=== PATIENT | female | born 1965 ===

== ENCOUNTER 2021-05-18 14:32 | Emergency (ER) | payer MEDICAID ==
[2021-05-18] MEDS ORDERED: Bacitracin Oint 1 GM U/D Packet TOP ONE (15:34)
[2021-05-18] MEDS ORDERED: Lidocaine 1% 30 ML SDV INJECT ONE (15:34)
[2021-05-18] MEDS ORDERED: Cephalexin 500 MG Cap PO ONE (15:35)
[2021-05-18] MEDS ORDERED: Ibuprofen 800 MG Tab PO ONE (15:35)
--- NOTE | 2021-05-18 15:43 | CR ---
PROCEDURE INFORMATION: Exam: XR Right Finger(s) Exam date and time: 05/18/2021 3:15 PM Age: 55 years old Clinical indication: Injury or trauma; Other: Crushing injury; Right; Middle finger; Additional info: Smashed distal right 3th finger TECHNIQUE: Imaging protocol: XR Right fingers. Views: Minimum 2 views. COMPARISON: No relevant prior studies available. FINDINGS: Bones/joints: Heart partial amputation of the tip of the middle finger with a tuft fracture of the distal phalanx. Soft tissues: Normal. IMPRESSION: Partial amputation of the soft tissues of the tip of the middle finger with acute tuft fracture of the distal phalanx
--- NOTE | 2021-05-18 16:47 | EDM.PDOC ---
ED HPI GENERAL MEDICAL PROBLEM - General Chief Complaint: Upper Extremity Injury/Pain Stated Complaint: SMASHED RIGHT FINGER Time Seen by Provider: 05/18/21 15:20 Source of Information: Reports: Patient History Limitations: Reports: No Limitations - History of Present Illness INITIAL COMMENTS - FREE TEXT/NARRATIVE: Pt complaining of laceration to the middle finger of her R hand. Pt was helping move a floating deck, while trying to pick it up she dropped it and it became smashed between the deck and a concrete block. Bleeding controlled with rag. No LOC. No other injury. Onset: Today, Sudden Duration: Hour(s): Location: Reports: Upper Extremity, Right Quality: Reports: Sharp Severity: Mild Improves with: Reports: None Worsens with: Reports: Movement Right Finger-Ring Pain Score (Numeric/FACES): 6 - Related Data Allergies Allergy/AdvReac Type Severity Reaction Status Date / Time No Known Allergies Allergy Verified 05/18/21 14:58 Home Meds: Home Meds . [No Known Home Meds] 05/18/21 [History] Past Medical History - Past Health History Medical/Surgical History: Denies Medical/Surgical History HEENT History: Reports: None Cardiovascular History: Reports: None Respiratory History: Reports: None Gastrointestinal History: Reports: None Genitourinary History: Reports: None [employer] History: Reports: None Musculoskeletal History: Reports: None Neurological History: Reports: None Psychiatric History: Reports: None Endocrine/Metabolic History: Reports: None Hematologic History: Reports: None Immunologic History: Reports: None Oncologic (Cancer) History: Reports: None Dermatologic History: Reports: None - Infectious Disease History Infectious Disease History: Reports: None - Past Surgical History Head Surgeries/Procedures: Reports: None Social & Family History - Family History Family Medical History: Unobtainable - Tobacco Use Tobacco Use Status *Q: Never Tobacco User - Caffeine Use Caffeine Use: Reports: Coffee - Recreational Drug Use Recreational Drug Use: No Review of Systems - Review of Systems Review Of Systems: Comprehensive ROS is negative, except as noted in HPI. ED EXAM, GENERAL - Physical Exam Exam: See Below Exam Limited By: No Limitations General Appearance: Alert, WD/WN, No Apparent Distress Respiratory/Chest: No Respiratory Distress, Lungs Clear, Normal Breath Sounds, No Accessory Muscle Use, Chest Non-Tender Cardiovascular: Normal Peripheral Pulses, Regular Rate, Rhythm, No Edema, No Gallop, No JVD, No Murmur, No Rub Peripheral Pulses: 2+: Radial (L), Radial (R) GI/Abdominal: Soft, Non-Tender (Female) Exam: Deferred Extremities: Other (1x1 cm laceration, evulsion to the tip of the R 3rd finger. Motor function intact. Minimal bleeding.) ED TRAUMA EXTREMITY PROCEDURES - Laceration/Wound Repair Right Distal Digit - 3rd (Middle) Lac/Wound Length In cm: 2 Appearance: Subcutaneous Anesthetic Type: Digital Local Anesthesia - Lidocaine (Xylocaine): 1% Plain Local Anesthetic Volume: 5cc Skin Prep: Saline Exploration/Debridement/Repair: Wound Explored Suture Size: 5-0 # of Sutures: 12 Suture Type: Interrupted Sterile Dressing Applied: Nurse Tetanus Status Addressed: Yes Complications: No Course - Vital Signs Last Recorded V/S: Last Vital Signs Temp 97.7 F 05/18/21 14:58 Pulse 99 05/18/21 14:58 Resp 18 05/18/21 14:58 BP 147/83 H 05/18/21 14:58 Pulse Ox 99 05/18/21 14:58 - Orders/Labs/Meds Orders: Active Orders 24 hr Category Date Time Status DME for Discharge [COMM] Routine Oth 05/18/21 15:35 Ordered Meds: Medications Discontinued Medications Generic Name Dose Route Start Last Admin Trade Name Lul PRN Reason Stop Dose Admin Bacitracin 1 dose 05/18/21 15:34 05/18/21 15:44 Bacitracin Oint 1 Gm U/D Packet TOP 05/18/21 15:35 1 dose ONETIME ONE Administration Cephalexin 500 mg 05/18/21 15:35 05/18/21 15:44 Cephalexin 500 Mg Cap PO 05/18/21 15:36 500 mg ONETIME ONE Administration Ibuprofen 800 mg 05/18/21 15:35 05/18/21 15:44 Ibuprofen 800 Mg Tab PO 05/18/21 15:36 800 mg ONETIME ONE Administration Lidocaine HCl 30 ml 05/18/21 15:34 05/18/21 15:44 Lidocaine 1% 30 Ml Sdv INJECT 05/18/21 15:35 30 ml ONETIME ONE Administration Departure - Departure Time of Disposition: 16:50 Disposition: Home, Self-Care 01 Condition: Good Clinical Impression: Closed fracture of tuft of distal phalanx of finger Laceration of finger Qualifiers: Encounter type: initial encounter Finger: middle finger Damage to nail status: with damage Foreign body presence: without foreign body Laterality: right Qualified Code(s): S61.312A - Laceration without foreign body of right middle finger with damage to nail, initial encounter - Discharge Information *PRESCRIPTION DRUG MONITORING PROGRAM REVIEWED*: Not Applicable *COPY OF PRESCRIPTION DRUG MONITORING REPORT IN PATIENT AMAYA: Not Applicable Instructions: Laceration Care, Adult, Finger Fracture, Adult, [id number] Additional Instructions: RX: Keflex Leave stitches in for 10-14 days. Keep wound dry for the first 24 hrs. Keep triple antibiotic ointment or aquaporin on wound. Use tylenol or motrin for pain as needed. If any new symptoms or concerns develop contact your primary care facility or return to the ER. Sepsis Event Note (ED) - Focused Exam Vital Signs: Vital Signs Temp Pulse Resp BP Pulse Ox 05/18/21 14:58 97.7 F 99 18 147/83 H 99
== END 2021-05-18 17:01 | disposition home or self-care (01) ==
LOC: DL.ED 14:32
DX: S62.632A Displaced fracture of distal phalanx of right middle finger, initial encounter for closed fracture (principal); S61.312A Laceration without foreign body of right middle finger with damage to nail, initial encounter; W20.8XXA Other cause of strike by thrown, projected or falling object, initial encounter
CPT/HCPCS: 12001; 73140; 99283; A9270